=== PATIENT | female | born 1960 | race Caucasian/White ===

== ENCOUNTER → 2021-08-28 | Outpatient (CLI) | payer BC ==
--- NOTE | 2021-08-29 08:06 | BD ---
EXAMINATION TYPE: Axial Bone Density DATE OF EXAM: 08/28/2021 COMPARISON: NONE CLINICAL HISTORY: Postmenopausal female Height: 5 F T 5IN Weight: 180 FRAX RISK QUESTIONS: Alcohol (3 or more units per day): NO Family History (Parent hip fracture): NO Glucocorticoids (More than 3mos): NO (Ex: prednisone, prednisolone, methylprednisolone, dexamethasone, and hydrocortisone). History of Fracture in Adulthood: YES Secondary Osteoporosis: 1. Type 1 Diabetes: NO 2. Hyperthyroidism: NO 3. Menopause before 45: NO 4. Malnutrition: NO 5. Chronic liver disease: NO Rheumatoid Arthritis: NO Current Tobacco Use: NO RISK FACTORS HISTORY OF: Surgery to Spine/Hip(right/left)/Wrist (right/left): NO Family History of Osteoporosis: NO Active: SOMEWHAT Diet low in dairy products/other sources of calcium: NO Postmenopausal woman: AGE 55 Take estrogen and/or progesterone medications: NO Lost more than 2 inches in height since high school: YES MEDICATIONS: Additional Medications: NONE Additional History: EXAM MEASUREMENTS: Bone mineral densitometry was performed using the [employer] System. Bone mineral density as measured about the Lumbar spine is: ----- L1-L4(G/cm2): 1.352 T Score Values are as follows: ----- L2: 1.0 ----- L3: 1.8 ----- L4: 1.2 ----- L1-L4: 1.4 BASELINE Bone mineral density about the R hip (g/cm2): 0.910 Bone mineral density about the L hip (g/cm2): 0.913 T Score values are as follows: -----R Neck: -0.9 -----L Neck: -0.9 -----R Total: -0.6 -----L Total: -0.5 BASELINE IMPRESSION: Normal (Values between +1 and -1 indicate normal bone mass). Consider repeating this study in 5 year s or sooner if there is some new clinical indication. NOTE: T-SCORE=SD OF THE YOUNG ADULT MEAN.
== END | disposition home or self-care (01) ==
LOC: RADBDWWP 14:45
PROVIDERS: ATTEND Family Medicine
DX: Z78.0 Asymptomatic menopausal state (principal)
CPT/HCPCS: 77080

== ENCOUNTER → 2021-09-28 | Outpatient (CLI) | payer BC ==
--- NOTE | 2021-09-28 13:42 | MM ---
Reason for exam: screening (asymptomatic). History: Patient is postmenopausal and is nulliparous. Family history of breast cancer in mother at age 64. Took hormonal contraceptives for 18 years. Physical Findings: A clinical breast exam by your physician is recommended on an annual basis and results should be correlated with mammographic findings. MG 3D Screening Mammo W/Cad Bilateral CC and MLO view(s) were taken. No prior studies available for comparison. The breast tissue is extremely dense which could obscure a lesion on mammography. There are benign appearing round calcifications bilaterally. There is no discrete abnormality. ASSESSMENT: Benign, BI-RAD 2 RECOMMENDATION: Routine screening mammogram of both breasts in 1 year.
== END | disposition home or self-care (01) ==
LOC: RADMAMWWP 07:54
PROVIDERS: ATTEND Family Medicine
DX: Z12.31 Encounter for screening mammogram for malignant neoplasm of breast (principal); Z78.0 Asymptomatic menopausal state; Z80.3 Family history of malignant neoplasm of breast
CPT/HCPCS: 77063; 77067